=== PATIENT | female | born 1975 | race Caucasian/White ===

== ENCOUNTER 2021-05-10 10:16 | Outpatient (CLI) | payer OTHER ==
[2021-05-10 10:39] LABS: BASOPHILS % (AUTO) 0.2 %; EOSINOPHILS # (AUTO) 0.3 10^3/uL (0.0-0.7); EOSINOPHILS % (AUTO) 3.6 %; HCT - HEMATOCRIT 29.2 % (37.0-47.0); HGB - HEMOGLOBIN 8.5 g/dL (12.0-16.0); LYMPHOCYTES # (AUTO) 1.6 10^3/uL (1.5-3.5); LYMPHOCYTES % (AUTO) 19.2 %; MEAN CORPUSCULAR HEMOGLOBIN 21.4 pg (27.0-31.0); MEAN CORPUSCULAR HGB CONC 29.1 g/dL (32.0-36.0); MEAN CORPUSCULAR VOLUME 73.4 fL (81.0-99.0); MEAN PLATELET VOLUME 10.2 fL (7.9-10.8); MONOCYTES # (AUTO) 0.5 10^3/uL (0.0-1.0); MONOCYTES % (AUTO) 5.8 %; NEUTROPHILS % (AUTO) 70.7 %; PLT - PLATELET COUNT 307 10^3/uL (130-450); RED BLOOD COUNT 3.98 10^6/uL (4.20-5.40); WHITE BLOOD COUNT 8.5 x10^3/uL (4.8-10.8)
[2021-05-10 10:53] LABS: ALBUMIN/GLOBULIN RATIO 1.1 (1.0-2.2); ALKALINE PHOSPHATASE 91 IU/L (42-121); ALT ALANINE AMINOTRANSFERASE 51 IU/L (10-60); AST ASPARTATE AMINOTRANSFERASE 31 IU/L (10-42); BILIRUBIN,TOTAL 0.4 mg/dL (0.2-1.0); BUN - BLOOD UREA NITROGEN 18 mg/dL (6-20); CALCIUM 9.2 mg/dL (8.5-10.3); CARBON DIOXIDE - CO2 23 mmol/L (21-32); CHLORIDE 102 mmol/L (101-111); CHOL/HDL RATIO 2.7 (<4.4); CHOLESTEROL 207 mg/dL; CREATININE 0.7 mg/dL (0.4-1.0); CRP - C-REACTIVE PROTEIN 1.7 mg/dL (0-1.0); GFR - MDRD 90 (>89); GLUCOSE 136 mg/dL (70-100); HDL CHOLESTEROL 77 mg/dL; LDL CHOLESTEROL,CALCULATED 80 mg/dL; POTASSIUM 3.6 mmol/L (3.5-5.0); SODIUM 134 mmol/L (135-145); TOTAL PROTEIN 7.6 g/dL (6.7-8.2); TRIGLYCERIDES 252 mg/dL; VLDL CHOLESTEROL 50 mg/dL
[2021-05-10 12:05] LABS: RHEUMATOID FACTOR NEGATIVE (Negative)
[2021-05-10 13:06] LABS: CREATININE,URINE 118.5 mg/dL; MICROALBUMIN,URINE 6.4 mg/dL (0-300.0)
[2021-05-10 13:51] LABS: ESTIMATED AVERAGE GLUCOSE 128 mg/dL (70-100); HEMOGLOBIN A1c% 6.1 % (4.27-6.07)
[2021-05-12 22:06] LABS: ANA SCREEN NEGATIVE (NEGATIVE)
== END 2021-05-10 10:17 | disposition home or self-care (01) ==
LOC: LAB 10:16
PROVIDERS: ATTEND Registered Nurse
DX: M25.50 Pain in unspecified joint (principal); E55.9 Vitamin D deficiency, unspecified; E11.9 Type 2 diabetes mellitus without complications
CPT/HCPCS: 36415; 80053; 80061; 82043; 82306; 82570; 83036; 83721; 85025; 85651; 86038; 86140; 86430

== ENCOUNTER 2021-05-18 12:11 | Outpatient (CLI) | payer OTHER ==
[2021-05-18 15:08] LABS: ABSOLUTE RETICS # AUTO 0.083 10^6/uL (0.020-0.110); BASOPHILS % (AUTO) 0.4 %; EOSINOPHILS # (AUTO) 0.3 10^3/uL (0.0-0.7); EOSINOPHILS % (AUTO) 3.9 %; HGB - HEMOGLOBIN 8.6 g/dL (12.0-16.0); LYMPHOCYTES # (AUTO) 1.7 10^3/uL (1.5-3.5); LYMPHOCYTES % (AUTO) 20.6 %; MEAN CORPUSCULAR HEMOGLOBIN 21.2 pg (27.0-31.0); MEAN CORPUSCULAR HGB CONC 28.7 g/dL (32.0-36.0); MEAN CORPUSCULAR VOLUME 73.9 fL (81.0-99.0); MEAN PLATELET VOLUME 10.6 fL (7.9-10.8); MONOCYTES # (AUTO) 0.5 10^3/uL (0.0-1.0); MONOCYTES % (AUTO) 5.6 %; NEUTROPHILS # (AUTO) 5.8 10^3/uL (1.5-6.6); PLT - PLATELET COUNT 343 10^3/uL (130-450); RED BLOOD COUNT 4.06 10^6/uL (4.20-5.40); RED CELL DISTRIBUTION WIDTH 18.1 % (12.0-15.0); RETICULOCYTE COUNT % (AUTO) 2.04 % (0.5-2.3); WHITE BLOOD COUNT 8.4 x10^3/uL (4.8-10.8)
[2021-05-18 15:55] LABS: % IRON SATURATION 6 % (20-50); ALBUMIN/GLOBULIN RATIO 1.1 (1.0-2.2); ALKALINE PHOSPHATASE 95 IU/L (42-121); ALT ALANINE AMINOTRANSFERASE 86 IU/L (10-60); AST ASPARTATE AMINOTRANSFERASE 54 IU/L (10-42); BILIRUBIN,TOTAL 0.5 mg/dL (0.2-1.0); BUN - BLOOD UREA NITROGEN 14 mg/dL (6-20); CARBON DIOXIDE - CO2 22 mmol/L (21-32); CHLORIDE 100 mmol/L (101-111); CHOL/HDL RATIO 2.6 (<4.4); CHOLESTEROL 208 mg/dL; CREATININE 0.8 mg/dL (0.4-1.0); CRP - C-REACTIVE PROTEIN 1.1 mg/dL (0-1.0); GFR - MDRD 77 (>89); GLUCOSE 134 mg/dL (70-100); HDL CHOLESTEROL 79 mg/dL; IRON 34 ug/dL (28-170); LDL CHOLESTEROL,CALCULATED 93 mg/dL; LDL/HDL RATIO 1.2 (<4.4); POTASSIUM 3.8 mmol/L (3.5-5.0); SODIUM 134 mmol/L (135-145); TOTAL IRON BINDING CAPACITY 564 ug/dL (250-450); TOTAL PROTEIN 7.6 g/dL (6.7-8.2); TRANSFERRIN 403 mg/dL (192-382); TRIGLYCERIDES 180 mg/dL; VLDL CHOLESTEROL 36 mg/dL
[2021-05-18 15:58] LABS: CREATININE,URINE 359.2 mg/dL
[2021-05-18 16:55] LABS: RHEUMATOID FACTOR NEGATIVE (Negative)
[2021-05-18 17:21] LABS: MICROALBUM/CREATININE RATIO,UR 557.9 ug/mg (<30.0); MICROALBUMIN,URINE 200.4 mg/dL (0-300.0)
[2021-05-18 21:05] LABS: ESTIMATED AVERAGE GLUCOSE 123 mg/dL (70-100); HEMOGLOBIN A1c% 5.9 % (4.27-6.07)
[2021-05-20 10:56] LABS: ANA SCREEN NEGATIVE (NEGATIVE)
== END 2021-05-18 12:12 | disposition home or self-care (01) ==
LOC: LAB.S 12:11
PROVIDERS: ATTEND Registered Nurse
DX: D50.9 Iron deficiency anemia, unspecified (principal); E11.9 Type 2 diabetes mellitus without complications; M25.50 Pain in unspecified joint; E55.9 Vitamin D deficiency, unspecified
CPT/HCPCS: 36415; 80053; 80061; 82043; 82306; 82570; 82728; 83036; 83540; 83721; 84466; 85025; 85045; 85651; 86038; 86140; 86430

== ENCOUNTER 2021-05-29 14:43 | Outpatient (CLI) | payer OTHER ==
[2021-05-29 20:05] LABS: BASOPHILS % (AUTO) 0.3 %; EOSINOPHILS # (AUTO) 0.3 10^3/uL (0.0-0.7); EOSINOPHILS % (AUTO) 3.8 %; HCT - HEMATOCRIT 29.3 % (37.0-47.0); HGB - HEMOGLOBIN 8.2 g/dL (12.0-16.0); LYMPHOCYTES # (AUTO) 1.6 10^3/uL (1.5-3.5); LYMPHOCYTES % (AUTO) 19.8 %; MEAN CORPUSCULAR HEMOGLOBIN 21.4 pg (27.0-31.0); MEAN CORPUSCULAR VOLUME 76.5 fL (81.0-99.0); MEAN PLATELET VOLUME 10.3 fL (7.9-10.8); MONOCYTES # (AUTO) 0.5 10^3/uL (0.0-1.0); MONOCYTES % (AUTO) 5.9 %; NEUTROPHILS # (AUTO) 5.5 10^3/uL (1.5-6.6); NEUTROPHILS % (AUTO) 69.6 %; PLT - PLATELET COUNT 285 10^3/uL (130-450); RED BLOOD COUNT 3.83 10^6/uL (4.20-5.40); RED CELL DISTRIBUTION WIDTH 19.7 % (12.0-15.0); WHITE BLOOD COUNT 7.9 x10^3/uL (4.8-10.8)
[2021-05-29 20:44] LABS: % IRON SATURATION 6 % (20-50); IRON 34 ug/dL (28-170); TOTAL IRON BINDING CAPACITY 536 ug/dL (250-450); TRANSFERRIN 383 mg/dL (192-382)
== END 2021-05-29 14:44 | disposition home or self-care (01) ==
LOC: LAB.S 14:43
PROVIDERS: ATTEND Registered Nurse
DX: D50.9 Iron deficiency anemia, unspecified (principal)
CPT/HCPCS: 36415; 82728; 83540; 84466; 85025

== ENCOUNTER 2022-02-16 10:04 | Outpatient (CLI) | payer OTHER ==
[2022-02-16 15:21] LABS: BASOPHILS % (AUTO) 0.2 %; EOSINOPHILS # (AUTO) 0.3 10^3/uL (0.0-0.7); EOSINOPHILS % (AUTO) 3.1 %; HCT - HEMATOCRIT 37.4 % (37.0-47.0); HGB - HEMOGLOBIN 12.1 g/dL (12.0-16.0); LYMPHOCYTES # (AUTO) 1.7 10^3/uL (1.5-3.5); LYMPHOCYTES % (AUTO) 17.2 %; MEAN CORPUSCULAR HEMOGLOBIN 27.8 pg (27.0-31.0); MEAN CORPUSCULAR HGB CONC 32.4 g/dL (32.0-36.0); MEAN CORPUSCULAR VOLUME 85.8 fL (81.0-99.0); MEAN PLATELET VOLUME 10.8 fL (7.9-10.8); MONOCYTES # (AUTO) 0.6 10^3/uL (0.0-1.0); MONOCYTES % (AUTO) 5.6 %; NEUTROPHILS # (AUTO) 7.4 10^3/uL (1.5-6.6); NEUTROPHILS % (AUTO) 73.4 %; PLT - PLATELET COUNT 290 10^3/uL (130-450); RED BLOOD COUNT 4.36 10^6/uL (4.20-5.40); RED CELL DISTRIBUTION WIDTH 14.8 % (12.0-15.0); WHITE BLOOD COUNT 10.1 x10^3/uL (4.8-10.8)
[2022-02-16 15:40] LABS: % IRON SATURATION 16 % (20-50); BUN - BLOOD UREA NITROGEN 13 mg/dL (6-20); CALCIUM 9.4 mg/dL (8.5-10.3); CARBON DIOXIDE - CO2 22 mmol/L (21-32); CHLORIDE 99 mmol/L (101-111); CHOL/HDL RATIO 2.6 (<4.4); CHOLESTEROL 214 mg/dL; CREATININE 0.8 mg/dL (0.4-1.0); GFR - MDRD 77 (>89); GLUCOSE 145 mg/dL (70-100); HDL CHOLESTEROL 83 mg/dL; IRON 77 ug/dL (28-170); LDL CHOLESTEROL,CALCULATED 105 mg/dL; LDL/HDL RATIO 1.3 (<4.4); POTASSIUM 3.5 mmol/L (3.5-5.0); SODIUM 133 mmol/L (135-145); TOTAL IRON BINDING CAPACITY 494 ug/dL (250-450); TRANSFERRIN 353 mg/dL (192-382); TRIGLYCERIDES 129 mg/dL; VLDL CHOLESTEROL 26 mg/dL
[2022-02-16 15:57] LABS: CREATININE,URINE 274.4 mg/dL; MICROALBUM/CREATININE RATIO,UR 66.7 ug/mg (<30.0); MICROALBUMIN,URINE 18.3 mg/dL (0-300.0)
--- NOTE | 2022-02-16 16:39 | XRAY Report ---
PROCEDURE: Knee 3 View RT INDICATIONS: XRAY TECHNIQUE: 3 views of the right knee(s) were acquired. COMPARISON: None. FINDINGS: Bones: Fabella noted. Normal patellar height and position. No fracture or dislocation. No knee joint space narrowing or other degenerative/arthritic features. Soft tissues: No joint effusion. No suspicious soft tissue calcifications. IMPRESSION: No acute finding or significant degenerative change. No imaging explanation for knee lulú n. Reviewed by: Jayro Rose MD on 02/16/2022 4:37 PM PDT Approved by: Jayro Rose MD on 02/16/2022 4:37 PM PDT Station ID: [id number]
[2022-02-16 20:34] LABS: ESTIMATED AVERAGE GLUCOSE 111 mg/dL (70-100); HEMOGLOBIN A1c% 5.5 % (4.27-6.07)
== END 2022-02-16 10:05 | disposition home or self-care (01) ==
LOC: DI.S 10:04
PROVIDERS: ATTEND Registered Nurse
DX: M25.561 Pain in right knee (principal); D50.9 Iron deficiency anemia, unspecified; E11.9 Type 2 diabetes mellitus without complications
CPT/HCPCS: 36415; 80048; 80061; 82043; 82570; 82728; 83036; 83540; 83721; 84466; 85025